=== PATIENT | male | born 1985 | race Caucasian/White ===

== ENCOUNTER 2016-10-06 02:29 | Emergency (ER) | payer SELFPAY ==
[2016-10-06 02:49] VITALS: BP 149/82
== END 2016-10-06 05:10 | disposition left against medical advice (07) ==
LOC: ER 02:29
DX: Z53.9 Procedure and treatment not carried out, unspecified reason (principal); R20.0 Anesthesia of skin

== ENCOUNTER 2017-08-10 23:54 | Emergency (ER) | payer OTHER ==
[2017-08-11 00:07] VITALS: BP 130/75
--- NOTE | 2017-08-11 00:34 | ER Document Report ---
HPI - HPI Pain Level: 5 Notes: Patient is a 32-year-old male no significant medical history presents ED complaining of right knee pain status post injury while at work. Patient states that he was rounding a corner and slipped on oil/water mix and his knee went into opposite directions when he fell and hit the concrete. Patient states that since then his knee has been wanting to buckle and give way on him. Patient states that he does have pain primarily to the lateral side and posteriorly. He has not noticed any obvious swelling or bruising. He denies any drug allergies. Denies any smoking or IV drug use. Denies any headache, fever, head injury, neck pain, chest pain, palpitations, syncope, cough, shortness of breath, wheeze, dyspnea, abdominal pain, nausea/vomiting/diarrhea, dysuria, hematuria, numbness/tingling, muscle paralysis/weakness, or rash. - ROS Notes: REVIEW OF SYSTEMS: CONSTITUTIONAL : Denies fever, chills, or sweats. Denies recent illness. EENT: Denies eye, ear, throat, or mouth pain or symptoms. Denies nasal or sinus congestion or discharge. Denies throat, tongue, or mouth swelling or difficulty swallowing. CARDIOVASCULAR: Denies chest pain. Denies palpitations or racing or irregular heart beat. Denies ankle edema. RESPIRATORY: Denies cough, cold, or chest congestion. Denies shortness of breath, difficulty breathing, or wheezing. GASTROINTESTINAL: Denies abdominal pain or distention. Denies nausea, vomiting , or diarrhea. GENITOURINARY: Denies difficulty urinating, painful urination, burning, frequency, blood in urine, or discharge. MUSCULOSKELETAL: see hpi SKIN: Denies rash, lesions or sores. NEUROLOGICAL: Denies dizziness or lightheadedness. Denies headache. Denies weakness or paralysis or loss of use of either side. Denies sensory loss, numbness, or tingling. ALL OTHER SYSTEMS REVIEWED AND NEGATIVE. Dictation was performed using [employer] voice recognition software Past Medical History - Social History Smoking Status: Never Smoker Family History: Reviewed & Not Pertinent, Other - COPD - Past Medical History Cardiac Medical History: Denies: Hx Coronary Artery Disease, Hx Heart Attack, Hx Hypertension Pulmonary Medical History: Denies: Hx Asthma, Hx Bronchitis, Hx COPD, Hx Pneumonia Neurological Medical History: Denies: Hx Cerebrovascular Accident Renal/ Medical History: Denies: Hx Peritoneal Dialysis GI Medical History: Reports: Hx Gastroesophageal Reflux Disease Musculoskeltal Medical History: Denies Hx Arthritis - Immunizations Hx Diphtheria, Pertussis, Tetanus Vaccination: Yes Vertical Provider Document - CONSTITUTIONAL Agree With Documented VS: Yes Notes: PHYSICAL EXAMINATION: GENERAL: Well-appearing, well-nourished and in no acute distress. LUNGS: Breath sounds clear to auscultation bilaterally and equal. No wheezes rales or rhonchi. HEART: Regular rate and rhythm without murmurs, rubs, gallops. Musculoskeletal: Rt knee: FROM to passive/active. Strength 5+/5. + ?Tu. + possible laxity to stress of the LCL. + mild tenderness to palp of the lateral joint line. No obvious effusion, ecchymosis, erythema, warmth, or deformity noted. N/v intact distal. Extremities: No cyanosis, clubbing, or edema b/l. Peripheral pulses 2+. Capillary refill less than 3 seconds. NEUROLOGICAL: Normal speech, limping gait. Normal sensory, motor exams PSYCH: Normal mood, normal affect. SKIN: Warm, Dry, normal turgor, no rashes or lesions noted. - INFECTION CONTROL TRAVEL OUTSIDE OF THE [place] IN LAST 30 DAYS: No - RESPIRATORY O2 Sat by Pulse Oximetry: 98 Course - Re-evaluation Re-evalutation: 08/11/17 01:25 Patient is an afebrile, well-hydrated, 32-year-old male who presents the ED with right knee pain, suspect possible internal knee involvement. Vitals are stable. PE is otherwise unremarkable for any neurovascular compromise, obvious tendon/ligament rupture, obvious fracture or dislocation. X-ray was unremarkable for any acute pathology. Knee immobilizer was placed and crutches were given. Recommend conservative measures for symptoms. Recheck with your PCM in 3-5 days. Call and schedule an appointment with orthopedics on Sunday for further evaluation and management. Work note provided. Return to the ED with any worsening/concerning symptoms otherwise as reviewed discharge. Patient is in agreement. - Vital Signs Vital signs: Temp Pulse Resp BP Pulse Ox 97.5 F 64 16 130/75 H 98 08/11/17 00:06 08/11/17 00:06 08/11/17 00:06 08/11/17 00:06 08/11/17 00:06 Discharge - Discharge Clinical Impression: Right knee pain Qualifiers: Chronicity: acute Qualified Code(s): M25.561 - Pain in right knee Condition: Stable Disposition: HOME, SELF-CARE Instructions: Use of Crutches (OM), Ice & Elevation (OM), Suspected Internal Knee Injury (OM), Knee Exercise Program ([facility]), Knee Immobilizing Splint ([facility]) Additional Instructions: Rest, Ice, Compression, Elevation Use sling as directed Tylenol/ibuprofen as needed Light stretches daily Strength exercises as able Moist heat and massage may help F/u with your PCP in 3-5 days for a recheck Call orthopedics on Sunday to schedule an appointment for further evaluation and management Return to the ED with any worsening symptoms and/or development of fever, headache, chest pain, palpitations, syncope, shortness of breath, trouble breathing, abdominal pain, n/v/d, muscle weakness/paralysis, numbness/tingling, swelling, redness, or other worsening symptoms that are concerning to you. Prescriptions: Naproxen 500 mg PO BID PRN #30 tablet PRN Reason: Forms: Elevated Blood Pressure, Return to Work Referrals: [email or web address] [Provider Group] - Follow up as needed
--- NOTE | 2017-08-11 01:28 | RADIOLOGY REPORT (SQ) ---
EXAM DESCRIPTION: KNEE RIGHT 4 VIEWS CLINICAL HISTORY: 32 years, Male, rt knee pain COMPARISON: None. NUMBER OF VIEWS: Four with obliques. FINDINGS: Minimal osteophytosis of the lateral compartment. No effusion. IMPRESSION: Minimal osteoarthritis of the right knee. 2011 [employer]- All Rights Reserved
== END 2017-08-11 01:41 | disposition home or self-care (01) ==
LOC: ER 23:54
DX: M25.561 Pain in right knee (principal); W01.198A Fall on same level from slipping, tripping and stumbling with subsequent striking against other object, initial encounter
CPT/HCPCS: 99283; 73564; L1830

== ENCOUNTER 2018-04-10 20:57 | Emergency (ER) | payer SELFPAY ==
--- NOTE | 2018-04-10 22:13 | RADIOLOGY REPORT (SQ) ---
EXAM DESCRIPTION: CHEST SINGLE VIEW COMPLETED DATE/TIME: 04/10/2018 10:02 pm REASON FOR STUDY: difficulty breathing COMPARISON: None. EXAM PARAMETERS: NUMBER OF VIEWS: One view. TECHNIQUE: Single frontal radiographic view of the chest acquired. RADIATION DOSE: NA LIMITATIONS: None. FINDINGS: LUNGS AND PLEURA: No opacities, masses or pneumothorax. No pleural effusion. MEDIASTINUM AND HILAR STRUCTURES: No masses. Contour normal. HEART AND VASCULAR STRUCTURES: Heart normal in size. Normal vasculature. BONES: No acute findings. HARDWARE: None in the chest. OTHER: No other significant finding. IMPRESSION: NO ACUTE RADIOGRAPHIC FINDING IN THE CHEST. TECHNICAL DOCUMENTATION: JOB ID: [id number] [employer]- All Rights Reserved Reading location - IP/workstation name: [email or web address]
[2018-04-10 22:20] LABS: ABSOLUTE BASOPHILS # (AUTO) 0.1 10^3/uL (0.0-0.2); ABSOLUTE EOSINOPHILS # (AUTO) 0.1 10^3/uL (0.0-0.6); ABSOLUTE LYMPHOCYTES (AUTO) 1.8 10^3/uL (0.5-4.7); ABSOLUTE MONOCYTES (AUTO) 1.2 10^3/uL (0.1-1.4); ABSOLUTE NEUT (AUTO) 12.1 10^3/uL (1.7-8.2); BASOPHILS % (AUTO) 0.4 % (0-2); EOSINOPHILS % (AUTO) 0.6 % (0-6); HEMATOCRIT 42.7 % (37.9-51.0); HEMOGLOBIN 14.7 g/dL (13.5-17.0); LYMPHOCYTES % (AUTO) 11.8 % (13-45); MEAN CORPUSCULAR HEMOGLOBIN 29.6 pg (27.0-33.4); MEAN CORPUSCULAR HGB CONC 34.4 g/dL (32.0-36.0); MEAN CORPUSCULAR VOLUME 86 fl (80-97); MONOCYTES % (AUTO) 7.6 % (3-13); PLATELET COUNT 266 10^3/uL (150-450); RED BLOOD COUNT 4.97 10^6/uL (4.35-5.55); RED CELL DISTRIBUTION WIDTH 12.7 % (11.5-14.0); SEGMENTED NEUTROPHILS % (AUTO) 79.6 % (42-78); TOTAL CELLS COUNTED % (AUTO) 100 %; WHITE BLOOD COUNT 15.1 10^3/uL (4.0-10.5)
[2018-04-10 22:33] LABS: ALANINE AMINOTRANSFERASE 40 U/L (21-72); ALBUMIN 5.2 g/dL (3.5-5.0); ALKALINE PHOSPHATASE 76 U/L (38-126); ANION GAP 16 (5-19); ASPARTATE AMINO TRANSFERASE 25 U/L (17-59); BILIRUBIN,DIRECT 0.3 mg/dL (0.0-0.4); BILIRUBIN,TOTAL 0.5 mg/dL (0.2-1.3); BLOOD UREA NITROGEN 12 mg/dL (7-20); CALCIUM 9.8 mg/dL (8.4-10.2); CARBON DIOXIDE 27 mmol/L (22-30); CHLORIDE 102 mmol/L (98-107); GLUCOSE 91 mg/dL (75-110); SODIUM 144.7 mmol/L (137-145); TOTAL PROTEIN 8.4 g/dL (6.3-8.2)
[2018-04-10 22:54] LABS: APPEARANCE,URINE CLEAR; BILIRUBIN,URINE NEGATIVE (NEGATIVE); COLOR,URINE STRAW; GLUCOSE, URINE NEGATIVE (NEGATIVE); KETONES,URINE NEGATIVE (NEGATIVE); LEUKOCYTE ESTERASE,URINE NEGATIVE (NEGATIVE); NITRITE,URINE NEGATIVE (NEGATIVE); PROTEIN,URINE NEGATIVE (NEGATIVE); URINE SPECIFIC GRAVITY 1.008; UROBILINOGEN,URINE NEGATIVE mg/dL (<2.0)
[2018-04-11] MEDS ORDERED: ACETAMINOPHEN 325 MG TABLET PO ONE (00:16)
[2018-04-11] MEDS ORDERED: NORMAL SALINE 1000 ML 1,000 ML IV ONE (00:16)
[2018-04-11 02:58] VITALS: BP 114/64
--- NOTE | 2018-04-11 03:00 | ER Document Report ---
ED General - General Chief Complaint: Breathing Difficulty Stated Complaint: DIFFICULTY BREATHING Time Seen by Provider: 04/10/18 23:54 Mode of Arrival: Ambulatory Information source: Patient Notes: Patient presents to the emergency department today with multiple complaints. Patient reports that while he was at work today he had some transient difficulty breathing and shortness of breath and sore throat. Patient reports he was working outside in the hot sun. Patient also complains of vomiting 7-8 times today. Patient denies knowledge of any fever however he has low-grade fever on arrival to the emergency department. Patient denies any chest pain. Patient denies any recent sick contacts that he is aware of. TRAVEL OUTSIDE OF THE [place] IN LAST 30 DAYS: No - Related Data Allergies/Adverse Reactions: No Known Allergies Allergy (Verified 01/01/13 09:57) Past Medical History - General Information source: Patient - Social History Smoking Status: Never Smoker Frequency of alcohol use: None Drug Abuse: None Family History: Reviewed & Not Pertinent, Other - COPD Patient has suicidal ideation: No Patient has homicidal ideation: No - Past Medical History Cardiac Medical History: Denies: Hx Coronary Artery Disease, Hx Heart Attack, Hx Hypertension Pulmonary Medical History: Denies: Hx Asthma, Hx Bronchitis, Hx COPD, Hx Pneumonia Neurological Medical History: Denies: Hx Cerebrovascular Accident Renal/ Medical History: Denies: Hx Peritoneal Dialysis GI Medical History: Reports: Hx Gastroesophageal Reflux Disease Musculoskeletal Medical History: Denies Hx Arthritis Past Surgical History: Reports: Hx Orthopedic Surgery - right knee - Immunizations Hx Diphtheria, Pertussis, Tetanus Vaccination: Yes Review of Systems - Review of Systems Constitutional: See HPI EENT: See HPI Cardiovascular: No symptoms reported Respiratory: No symptoms reported, See HPI Gastrointestinal: No symptoms reported Genitourinary: No symptoms reported Male Genitourinary: No symptoms reported Musculoskeletal: No symptoms reported Skin: No symptoms reported Hematologic/Lymphatic: No symptoms reported Neurological/Psychological: No symptoms reported Physical Exam - Vital signs Vitals: Temp Pulse Resp BP Pulse Ox 100.7 F H 105 H 22 H 129/73 H 100 04/10/18 21:09 04/10/18 21:09 04/10/18 21:09 04/10/18 21:09 04/10/18 21:09 - Notes Notes: PHYSICAL EXAMINATION: GENERAL: Well-appearing, febrile but does not appear to be in any acute distress. HEAD: Atraumatic, normocephalic. EYES: Pupils equal round and reactive to light, extraocular movements intact, sclera anicteric, conjunctiva are normal. ENT: Nares patent, oropharynx clear without exudates or erythema, no tonsillar swelling, no evidence of MENTAL HEALTH THERAPIST. Moist mucous membranes. NECK: Normal range of motion, supple without lymphadenopathy LUNGS: Breath sounds clear to auscultation bilaterally and equal. No wheezes rales or rhonchi. HEART: Regular rate and rhythm without murmurs ABDOMEN: Soft, nontender, nondistended abdomen. No guarding, no rebound. No masses appreciated. Musculoskeletal: Normal range of motion, no pitting or edema. No cyanosis. NEUROLOGICAL: Cranial nerves grossly intact. Normal speech, normal gait. Normal sensory, motor exams PSYCH: Normal mood, normal affect. SKIN: Warm, Dry, normal turgor, no rashes or lesions noted. Course - Re-evaluation Re-evalutation: Patient presents with multiple complaints specifically shortness of breath and sore throat. Patient does have a low-grade fever on arrival. CBC reveals a leukocytosis with a white blood count of 15.1, left shift is noted. Comprehensive metabolic panel is unremarkable other than an elevated CK of 220. Urinalysis is unremarkable. Rapid strep is negative. Patient's physical examination is unremarkable. Patient's vital signs are stable other than the initial fever, this has resolved. Patient has been normotensive and without tachycardia or tachypnea. Patient reports that he has had complete resolution of his symptoms after IV fluids and acetaminophen. Patient does report that his symptoms started while he was outside working in the sun. Patient will be discharged home with likely heat exhaustion. - Vital Signs Vital signs: Temp Pulse Resp BP Pulse Ox 99.1 F 105 H 18 114/64 96 04/11/18 02:53 04/10/18 21:09 04/11/18 02:53 04/11/18 02:53 04/11/18 02:53 - Laboratory Result Diagrams: 04/10/18 21:55 04/10/18 21:55 Laboratory results interpreted by me: 04/10/18 04/10/18 04/10/18 21:55 21:55 21:55 WBC 15.1 H Seg Neutrophils % 79.6 H Lymphocytes % 11.8 L Absolute Neutrophils 12.1 H Creatine Kinase 220 H Total Protein 8.4 H Albumin 5.2 H Discharge - Discharge Clinical Impression: Elevated CK Condition: Stable Disposition: HOME, SELF-CARE Additional Instructions: Heat Exhaustion You have had an episode of heat exhaustion. The body overheats when sweating fails to keep the temperature down due to high humidity, exercise, or dehydration. Typical symptoms may include muscle cramps, dizziness, nausea, and even chilling. You should rest and drink plenty of fluids. Do not resume any activities until you feel fully back to normal. To prevent a recurrence, avoid working in the heat. Always drink plenty of fluids when the weather is hot, particularly if you will be exercising. Use extra caution when the humidity is high. If you feel symptoms of heat illness, douse yourself with cold water and rest in the shade. Call the doctor if you develop confusion, repeated vomiting, severe headache, severe muscle spasms, fever, chest pain or shortness of breath. Please follow up with your primary care provider in the next 2-3 days for a follow up. Please drink plenty of fluids while you are outside working. Return to the emergency department if you develop worsening symptoms, abdominal pain, chest pain or any other symptom that is concerning to you. Forms: Return to Work Referrals: [facility] [Provider Group] - Follow up as needed
--- NOTE | 2018-04-11 11:35 | EKG REPORT ---
SEVERITY:- NORMAL ECG - SINUS RHYTHM : Confirmed by: Lucia Thomas MD 11-Apr-2018 11:34:32
== END 2018-04-11 03:06 | disposition home or self-care (01) ==
LOC: ER 20:57
DX: R74.8 Abnormal levels of other serum enzymes (principal); R06.02 Shortness of breath; J02.9 Acute pharyngitis, unspecified; R11.10 Vomiting, unspecified; R50.9 Fever, unspecified; D72.829 Elevated white blood cell count, unspecified
CPT/HCPCS: 93005; 99285; 96360; 36415; 87070; 87880; 82550; 85025; 87077; 80053; 81001; 71045; 93010; J7030

== ENCOUNTER 2019-01-05 08:05 | Emergency (ER) | payer SELFPAY ==
[2019-01-05] MEDS ORDERED: DIPH/PERTUSS(ACELL)/TETANUS VAC/PF 0.5 ML SYR (>=10YO) IM ONE (09:49)
--- NOTE | 2019-01-05 09:53 | ER Document Report ---
HPI - HPI Time Seen by Provider: 01/05/19 09:09 Pain Level: 2 Context: Patient is a 33-year-old male who presents the emergency department with a chief complaint of left foot pain. He stepped on nail or piece of glass last week. The area that was affected was the left lateral portion of the plantar portion of his foot. States that he has had a little bit of numbness to the area. Admits to having some drainage from the area, but the drainage has stopped. 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 He has not seen a primary care provider in regards to this issue. He is not up-to-date on his tetanus vaccine. Denies any past medical history. Patient does not take any medications. - CONSTITUTIONAL Constitutional: DENIES: Fever, Chills - EENT EENT: DENIES: Sore Throat - NEURO Neurology: DENIES: Headache - CARDIOVASCULAR Cardiovascular: DENIES: Chest pain - RESPIRATORY Respiratory: DENIES: Trouble Breathing - GASTROINTESTINAL Gastrointestinal: DENIES: Abdominal Pain - MUSCULOSKELETAL Musculoskeletal: REPORTS: Extremity pain - Left foot - DERM Skin Color: Normal Skin Problems: None Past Medical History - Social History Smoking Status: Never Smoker Family History: Reviewed & Not Pertinent, Other - COPD - Past Medical History Cardiac Medical History: Denies: Hx Coronary Artery Disease, Hx Heart Attack, Hx Hypertension Pulmonary Medical History: Denies: Hx Asthma, Hx Bronchitis, Hx COPD, Hx Pneumonia Neurological Medical History: Denies: Hx Cerebrovascular Accident Renal/ Medical History: Denies: Hx Peritoneal Dialysis GI Medical History: Reports: Hx Gastroesophageal Reflux Disease Musculoskeletal Medical History: Denies Hx Arthritis Past Surgical History: Reports: Hx Orthopedic Surgery - right knee - Immunizations Hx Diphtheria, Pertussis, Tetanus Vaccination: Yes Vertical Provider Document - CONSTITUTIONAL Agree With Documented VS: Yes Exam Limitations: No Limitations General Appearance: No Apparent Distress - INFECTION CONTROL TRAVEL OUTSIDE OF THE [place] IN LAST 30 DAYS: No - HEENT HEENT: Atraumatic, Normocephalic - NECK Neck: Normal Inspection - RESPIRATORY Respiratory: Breath Sounds Normal, No Respiratory Distress - CARDIOVASCULAR Cardiovascular: Regular Rate, Regular Rhythm Pulses: Normal: Radial - MUSCULOSKELETAL/EXTREMETIES Musculoskeletal/Extremeties: FROM, Tender - Left lateral, distal, plantar flexion of foot - NEURO Level of Consciousness: Awake, Alert, Appropriate Motor/Sensory: No Motor Deficit, No Sensory Deficit - DERM Integumentary: Warm, Dry, No Rash Course - Re-evaluation Re-evalutation: 01/05/19 10:36 Patient's x-ray is negative for any fracture. There is no foreign body noted. He will be started on Augmentin, as the patient did have some purulent drainage to the area. He also may have stepped on a nail. He received a tetanus vaccine here in the emergency department. I do not suspect patient has an abscess that needs to be drained, as it already drained, or any life-threatening etiology at this time. Patient is nontoxic in appearance. Verbal discharge instructions were given to the patient. They verbalized understanding. They are stable for discharge. - Vital Signs Vital signs: Temp Pulse Resp BP Pulse Ox 97.6 F 60 16 130/58 H 100 01/05/19 09:34 01/05/19 09:34 01/05/19 09:34 01/05/19 09:34 01/05/19 09:34 Discharge - Discharge Clinical Impression: Left foot pain, Puncture wound Condition: Stable Disposition: HOME, SELF-CARE Additional Instructions: You are seen today in the emergency department for a puncture wound to your left foot. You received a tetanus vaccine here in the emergency department. You have also been prescribed antibiotics. Please take all your antibiotics as prescribed. If you have any pain, you can take ibuprofen 600 mg and acetaminophen 1000 mg every 6 hours as needed for your pain. Please follow-up with a primary care provider in regards to this visit. If you develop a fever greater than 100.4 F while on ibuprofen and Tylenol, have redness to your foot, or have any symptoms that are worrisome to you, please return to the emergency department. Prescriptions: Amox Tr/Potassium Clavulanate [Augmentin 875-125 Tablet] 1 tab PO BID 10 Days #20 tablet
--- NOTE | 2019-01-05 10:24 | RADIOLOGY REPORT (SQ) ---
EXAM DESCRIPTION: FOOT LEFT COMPLETE COMPLETED DATE/TIME: 01/05/2019 10:06 am REASON FOR STUDY: eval foreign body; stepped on nail or glass COMPARISON: None. NUMBER OF VIEWS: Three views. TECHNIQUE: AP, lateral and oblique radiographic images acquired of the left foot. LIMITATIONS: None. FINDINGS: MINERALIZATION: Normal. BONES: No acute fracture or dislocation. No worrisome bone lesions. JOINTS: No effusions. SOFT TISSUES: No soft tissue swelling. No foreign body. OTHER: No other significant finding. IMPRESSION: NEGATIVE STUDY OF THE LEFT FOOT. NO RADIOGRAPHIC EVIDENCE OF ACUTE INJURY. TECHNICAL DOCUMENTATION: JOB ID: [id number] [employer]- All Rights Reserved Reading location - IP/workstation name: [email or web address]
[2019-01-05 10:56] VITALS: BP 119/67
== END 2019-01-05 10:59 | disposition home or self-care (01) ==
LOC: ER 08:05
DX: S91.312A Laceration without foreign body, left foot, initial encounter (principal); M79.672 Pain in left foot; X58.XXXA Exposure to other specified factors, initial encounter
CPT/HCPCS: 90471; 90715; 99283